=== PATIENT | female | born 1955 | race Caucasian/White ===

== ENCOUNTER → 2016-12-25 | Outpatient (CLI) | payer OTHER ==
--- NOTE | 2016-12-25 08:41 | US ---
EXAMINATION TYPE: US abdomen complete DATE OF EXAM: 12/25/2016 COMPARISON: NONE CLINICAL HISTORY: R10.9 ABD Pain. Epigastric and RUQ pain, nausea and vomiting; ulcerative colitis, c eliac disease EXAM MEASUREMENTS: Liver Length: 13.7 cm Gallbladder Wall: 0.2 cm CBD: 0.4 cm Spleen: 8.5 cm Right Kidney: 10.4 x 6.1 x 5.4 cm Left Kidney: 10.1 x 5.3 x 5.2 cm Pancreas: wnl Liver: multiple hepatic cysts with largest in right lobe = 3.9 x 3.8 x 4.0cm Gallbladder: wnl Evidence for sonographic Greer's sign: No CBD: wnl Spleen: wnl Right Kidney: couple of renal cysts with larger at lateral lower pole = 1.3 x 1.6 x 1.4cm Left Kidney: wnl Upper IVC: wnl Abd Aorta: wnl IMPRESSION: 1. Sonographically simple appearing benign hepatic cysts and right renal cysts. 2. No sonographic evidence of cholelithiasis or cholecystitis.
== END ==
LOC: RADUSWWP 07:32
PROVIDERS: ATTEND Family Medicine
DX: N28.1 Cyst of kidney, acquired (principal); K76.89 Other specified diseases of liver; R10.9 Unspecified abdominal pain
CPT/HCPCS: 76700

== ENCOUNTER 2021-04-07 22:55 | Inpatient (IN) | payer OTHER ==
[2021-04-07] MEDS ORDERED: MORPHINE SULFATE 4 MG/ML SYRINGE IV STA (23:21)
--- NOTE | 2021-04-07 23:30 | ED ---
Neuro HPI - General Chief Complaint: Neuro Symptoms/Deficit Stated Complaint: LT eye drooping, headache Time Seen by Provider: 04/07/21 23:08 Source: patient Mode of arrival: ambulatory Limitations: no limitations - History of Present Illness Is the patient presenting with stroke symptoms?: Yes Last Known Well Date: 04/07/21 Last Known Well Time: 10:00 Last Observed Normal: 10:00 Location: left face History of same: No Place: home Severity: severe Quality: weak, numb Improves With: time Worsens With: none On Anticoagulants: No Context: sudden onset Associated Symptoms: headaches - Related Data Home Medications: Home Medications Medication Instructions Recorded Confirmed Albuterol Inhaler (Mhu) [Ventolin 1 - 2 puff INHALATION Q6HR PRN 01/09/16 01/09/16 Hfa Inhaler] Aspirin 81 mg PO DAILY 01/09/16 01/09/16 Levothyroxine Sodium [Synthroid] 100 mcg PO DAILY 01/09/16 01/09/16 Liothyronine Sodium [Cytomel] 25 mcg PO DAILY 01/09/16 01/09/16 Raloxifene [Evista] 60 mg PO DAILY 01/09/16 01/09/16 Thyroid,Pork [[place] Thyroid] 5 mg PO DAILY 01/09/16 01/09/16 Allergies/Adverse Reactions: Allergies Allergy/AdvReac Type Severity Reaction Status Date / Time No Known Allergies Allergy Verified 01/10/16 10:42 Review of Systems ROS Statement: Those systems with pertinent positive or pertinent negative responses have been documented in the HPI. ROS Other: All systems not noted in ROS Statement are negative. General Exam Limitations: no limitations Stroke MDM - NIH Stroke Scale 1a. Level of Consciousness: (0) alert 1b. LOC Questions: (0) answers correctly 1c. LOC Commands: (0) performs tasks correctly 2. Best Gaze: (1) partial gaze palsy 3. Visual: (0) no visual loss 4. Facial Palsy: (1) minor paralysis 5a. Motor Arm Left: (0) no drift 5b. Motor Arm Right: (0) no drift 6a. Motor Leg Left: (0) no drift 6b. Motor Leg Right: (0) no drift 7. Limb Ataxia: (0) absent 8. Sensory: (0) normal 9. Best Language: (0) no aphasia 10. Dysarthria: (0) normal 11. Extinction/Inattention: (0) no abnormality NIH Score total: 2 - EKG Data -: EKG Interpreted by Me EKG shows normal: sinus rhythm, axis (Normal), intervals (Normal), QRS complexes (Normal) Rate: normal (880 bpm) Interpretation: nonspecific ST-T wave changes Past Medical History Past Medical History: Asthma, Cancer, Fibromyalgia, Thyroid Disorder Additional Past Medical History / Comment(s): hx. skin cancer, Nilesh's, ulcerative colitis, has celiac, chronic fatigue History of Any Multi-Drug Resistant Organisms: None Reported Past Surgical History: Section, Hysterectomy, Orthopedic Surgery, Tonsillectomy Additional Past Surgical History / Comment(s): bilateral big toe joints removed, thyroidectomy, nerve release left groing Past Anesthesia/Blood Transfusion Reactions: Previous Problems w/ Anesthesia, Postoperative Nausea & Vomiting (PONV) Additional Past Anesthesia/Blood Transfusion Reaction / Comment(s): states after thyroid surg. had hives from head to toe & vocal cord nicked from intubation Past Psychological History: Depression Smoking Status: Never smoker Past Alcohol Use History: Occasional Past Drug Use History: None Reported - Past Family History Father Family Medical History: Cancer Course Vital Signs 04/07/21 23:03 Temperature 100.2 F H Pulse Rate 87 Respiratory 18 Rate Blood Pressure 145/91 O2 Sat by Pulse 98 Oximetry Disposition Referrals: Josiah Smith MD [Primary Care Provider] - 1-2 days
[2021-04-07 23:43] LABS: Basophils % (A) 0 %; Eosinophils # (A) 0.3 k/uL (0-0.7); Eosinophils % (A) 4 %; HCT 44.1 % (34.0-46.0); HGB 14.2 gm/dL (11.4-16.0); Lymphocytes # (A) 2.1 k/uL (1.0-4.8); Lymphocytes % (A) 26 %; MCH 30.1 pg (25.0-35.0); MCHC 32.1 g/dL (31.0-37.0); MCV 93.7 fL (80.0-100.0); Mean Platelet Volume 7.5; Monocytes # (A) 0.4 k/uL (0-1.0); Monocytes % (A) 6 %; Neutrophils # (A) 4.9 k/uL (1.3-7.7); Neutrophils % (A) 61 %; Platelet Count 364 k/uL (150-450); RDW 13.3 % (11.5-15.5)
--- NOTE | 2021-04-07 23:48 | CT ---
EXAMINATION TYPE: CT brain wo con for TPA DATE OF EXAM: 04/07/2021 COMPARISON: None HISTORY: AMS CT DLP: mGycm Automated exposure control for dose reduction was used. Ventricles and sulci appear normal. There is no mass effect or midline shift. There is no sign of int racranial hemorrhage. The calvarium is intact. Skull base is intact. There is normal aeration of the mastoid sinuses. IMPRESSION: Negative unenhanced head CT scan
--- NOTE | 2021-04-07 23:49 | XR ---
EXAMINATION TYPE: XR chest 1V portable DATE OF EXAM: 04/07/2021 COMPARISON: NONE HISTORY: Altered mental status TECHNIQUE: Single view FINDINGS: Heart is normal. Lungs are clear of consolidation. There are no hilar masses. Costophrenic angles are clear IMPRESSION: No active cardiopulmonary disease. Normal heart.
--- NOTE | 2021-04-08 | CT ---
EXAMINATION TYPE: CT angio head neck DATE OF EXAM: 04/07/2021 COMPARISON: None HISTORY: AMS CT DLP: 1509.5 mGycm Automated exposure control for dose reduction was used. CONTRAST: Performed with IV Contrast, patient injected with 65 mL of Isovue 370. Images obtained from the aortic arch to the vertex of the brain with IV contrast. There is 3-D post p rocessed images. FINDINGS: There is normal branching pattern of the great vessels on the aortic arch. There is arterial flow in the common internal and external carotid arteries bilaterally. There is wide patency the carotid amanda ry bifurcations. There is arterial flow in both vertebral arteries. There is arterial flow in the ruslan tebral basilar artery system. There is no evidence of carotid or vertebral artery aneurysm or dissect ion. There is arterial flow in the anterior middle and posterior cerebral arteries. There is no mass effec t. There is no evidence of intracranial aneurysm or neovascularity. There is normal enhancement of th e venous sinuses. There is no evidence of any intracranial arterial stenosis. IMPRESSION: Negative CT angiogram of the brain. Negative CT angiogram of the neck.
[2021-04-08 00:06] LABS: INR 0.9 (<1.2); Partial Thromboplastin Time 23.5 sec (22.0-30.0); Prothrombin Time 10.1 sec (9.0-12.0)
[2021-04-08 00:10] LABS: ALT 18 U/L (4-34); AST 22 U/L (14-36); African American GFR (CKD) >90 (>60 ml/min/1.73 sqM); Albumin 3.9 g/dL (3.5-5.0); Alkaline Phosphatase 76 U/L (38-126); Anion Gap 6 mmol/L; Blood Urea Nitrogen 14 mg/dL (7-17); Calcium 8.9 mg/dL (8.4-10.2); Carbon Dioxide 25 mmol/L (22-30); Chloride 104 mmol/L (98-107); Glucose 105 mg/dL (74-99); Non-African American GFR(CKD) >90 (>60 ml/min/1.73 sqM); Potassium 4.2 mmol/L (3.5-5.1); Sodium 135 mmol/L (137-145); Total Bilirubin 0.4 mg/dL (0.2-1.3); Total Protein 6.6 g/dL (6.3-8.2)
[2021-04-08] MEDS ORDERED: METOCLOPRAMIDE 5 MG/ML 2 ML VIAL IVP STA (00:43)
[2021-04-08] MEDS ORDERED: diphenhydrAMINE 50 MG/ML 1 ML VIAL IVP STA ×2 (00:43→11:01)
[2021-04-08 00:58] LABS: Appearance,Urine Clear (Clear); Bilirubin,Urine Negative (Negative); Blood,Urine Negative (Negative); Color,Urine Light Yellow; Glucose,Urine (UA) Negative (Negative); Ketones,Urine Negative (Negative); Leukocyte Esterase,Urine Small (Negative); Mucus,Urine Rare /hpf; Nitrite,Urine Negative (Negative); PH, Urine 5.5 (5.0-8.0); Protein,Urine Negative (Negative); RBC,Urine 2 /hpf (0-5); Squamous Epithelial Cell,Urine <1 /hpf (0-4); Urobilinogen,Urine <2.0 mg/dL (<2.0); WBC,Urine 4 /hpf (0-5)
[2021-04-08] MEDS ORDERED: ASPIRIN 325 MG TAB PO STA (02:45)
[2021-04-08] MEDS ORDERED: SODIUM CHLORIDE 0.9% 1,000 ML IV SCH (02:45)
[2021-04-08] MEDS ORDERED: HYDROmorphone 0.5 MG/0.5 ML SYRINGE IVP STA (03:00)
[2021-04-08] MEDS ORDERED: SUMAtriptan succinate 6 MG/0.5 ML VIAL SQ STA (03:00)
--- NOTE | 2021-04-08 04:42 | P.HPIM ---
History of Present Illness H&P Date: 04/08/21 Chief Complaint: left sided ptosis 65-year-old female with history of recurrent skin cancer Nilesh's thyroiditis status post thyroidectomy He comes in due to left eye ptosis and dilated pupils. Patient woke up this morning having migraine headaches and then progressed into noticing that her left pupil is dilated. She was also having some photophobia and diplopia. She notified her daughter didn't think much of it and then later on this evening she started noticing left ptosis for which she was brought into the hospital for evaluation. She mentions that she checked her blood pressure throughout the day was fine. She reports persistent headache due to which she thought was migraine. Her last migraine attack was about 30-40 years ago. Patient denies any other focal neuro deficits associated with this. Patient reports some chronic cough and chronic fatigue since she acquired Covid back in March 2019. Otherwise denies any hemoptysis or weight loss denies any abdominal pain nausea or vomiting denies any fevers or chills denies any shortness of breath or chest pain. Workup in the ED involved a code stroke she was evaluated by neurology computed tomography scan of the brain and CTA both were unremarkable for any acute pathology Patient was admitted for further neurology evaluation to rule out stroke Review of Systems Pertinent positives as noted in HPI. All other systems were reviewed and are negative Past Medical History Past Medical History: Asthma, Cancer, Fibromyalgia, Thyroid Disorder Additional Past Medical History / Comment(s): hx. skin cancer, Nilesh's, ulcerative colitis, has celiac, chronic fatigue History of Any Multi-Drug Resistant Organisms: None Reported Past Surgical History: Section, Hysterectomy, Orthopedic Surgery, Tonsillectomy Additional Past Surgical History / Comment(s): bilateral big toe joints removed, thyroidectomy, nerve release left groing Past Anesthesia/Blood Transfusion Reactions: Previous Problems w/ Anesthesia, Postoperative Nausea & Vomiting (PONV) Additional Past Anesthesia/Blood Transfusion Reaction / Comment(s): states after thyroid surg. had hives from head to toe & vocal cord nicked from intubation Past Psychological History: Depression Smoking Status: Never smoker Past Alcohol Use History: Occasional Past Drug Use History: None Reported - Past Family History Father Family Medical History: Cancer Medications and Allergies Home Medications Medication Instructions Recorded Confirmed Type Aspirin 81 mg PO HS 01/08/04/07/21 History Levothyroxine Sodium [Synthroid] 100 mcg PO DAILY 10/27/16 01/24/22 History Liothyronine Sodium [Cytomel] 25 mcg PO DAILY 01/09/16 04/07/21 History Raloxifene [Evista] 60 mg PO DAILY 01/09/16 04/07/21 History Thyroid,Pork [[place] Thyroid] 15 mg PO DAILY 01/09/16 04/07/21 History Cetirizine HCl [Zyrtec] 10 mg PO DAILY 04/07/21 04/07/21 History FLUoxetine HCL [PROzac] 20 mg PO DAILY 04/07/21 04/07/21 History busPIRone HCL [Buspar] 7.5 mg PO BID 04/07/21 04/07/21 History Allergies Allergy/AdvReac Type Severity Reaction Status Date / Time No Known Allergies Allergy Verified 04/07/21 23:44 Physical Exam Vitals: Vital Signs Temp Pulse Resp BP Pulse Ox 04/08/21 00:24 83 16 123/84 95 04/07/21 23:03 100.2 F H 87 18 145/91 98 Intake and Output 04/07/21 04/07/21 04/08/21 14:59 22:59 06:59 Other: Weight 90.718 kg Constitutional: No acute distress, conversant, pleasant Eyes: Anicteric sclerae, moist conjunctiva, Pupils unequal , reactive on the right, dilated and fixed on the left , with ptosis on the left ENMT: NC/AT Oropharynx clear, no erythema, or exudates Neck: Supple, no masses, or JVD No carotid bruits No thyromegaly Lungs: Clear to auscultation Clear to percussion Normal respiratory effort, no accessory muscle use Cardiovascular: Heart regular in rate and rhythm, No murmurs, gallops, or rubs No peripheral edema Abdominal: Soft Nontender, no guarding, rebound or rigidity Abdomen moving with respiration Normoactive bowel sounds No hepatomegaly, No splenomegaly No palpable mass No abdominal wall hernia noted Skin: Normal temperature, tone, texture, turgor No induration No subcutaneous nodules No rash, lesions No ulcers Extremities: No digital cyanosis No clubbing Pedal pulses intact and symmetrical Radial pulses intact and symmetrical No calf tenderness Psychiatric: Alert and oriented to person, place and time Appropriate affect fair judgement Neuro Muscles Strength 5/5 in all 4 extremities , however left upper extremity slightly weaker than right Sensation to light touch grossly present throughout Cranial nerves II-XII grossly intact, Except for partial 3rd cranial nerve pasly on the left with partial deficiency (levator palpebrae and pupillomotor) Left extraocular muscles intact Lymphatics: palpable right supraclavicular lymph nodes Results CBC & Chem 7: 04/07/21 23:23 04/07/21 23:23 Labs: Abnormal Lab Results - Last 24 Hours (Table) 04/07/21 04/08/21 Range/Units 23:23 00:30 Sodium 135 L (137-145) mmol/L Glucose 105 H (74-99) mg/dL Ur Specific [place] 1.050 H (1.001-1.035) Ur Leukocyte Esterase Small H (Negative) Urine Mucus Rare H (None) /hpf Assessment and Plan Assessment: partial left 3 rd cranial nerve palsy (sparing extraocular muscles ) left sided isolated unilateral ptosis and mydriasis , suspicious for brain stem (midbrain) infarction ASA Statin neuro checks neurology consult check echocardiogram tele monitor vital signs check MRI brain PT/OT check TSH, A1c, lipid panel follow up electrolytes chronic conditions intermittent asthma h/o hashimotos s/p thyroidectomy skin cancer full code DVT PPX mechanical 2/2 stroke anticipated length of stay < 2 midnights
[2021-04-08] MEDS ORDERED: LEVOTHYROXINE 100 MCG TAB PO SCH (06:30)
[2021-04-08 07:00] LABS: African American GFR (CKD) >90 (>60 ml/min/1.73 sqM); Anion Gap 8 mmol/L; Blood Urea Nitrogen 12 mg/dL (7-17); Calcium 8.7 mg/dL (8.4-10.2); Carbon Dioxide 22 mmol/L (22-30); Chloride 102 mmol/L (98-107); Glucose 110 mg/dL (74-99); Non-African American GFR(CKD) >90 (>60 ml/min/1.73 sqM); Potassium 4.5 mmol/L (3.5-5.1); Sodium 132 mmol/L (137-145)
[2021-04-08 07:47] VITALS: RESP 18
[2021-04-08] MEDS: busPIRone HCl 5 MG TAB PO SCH ×2 (08:22→20:58)
[2021-04-08] MEDS: FAMOTIDINE 20 MG/2 ML VIAL IV SCH ×2 (08:23→20:58)
[2021-04-08] MEDS: FLUoxetine HCL 20 MG CAP PO SCH (08:23)
[2021-04-08] MEDS: ACETAMINOPHEN TAB 325 MG TAB PO PRN ×2 (08:27→14:10)
[2021-04-08] MEDS ORDERED: LIOTHYRONINE SODIUM 5 MCG TAB PO SCH (09:00)
[2021-04-08] MEDS ORDERED: THYROID, PORK 30 MG TAB PO SCH (09:00)
[2021-04-08] MEDS ORDERED: RALOXIFENE 60 MG TAB PO SCH (09:00)
[2021-04-08] MEDS ORDERED: ATORVASTATIN 40 MG TAB PO SCH (09:00)
[2021-04-08] MEDS ORDERED: LORATADINE 10 MG TAB PO SCH (09:00)
--- NOTE | 2021-04-08 10:39 | ECHOF ---
Referral Reason:stroke MEASUREMENTS -------- HEIGHT: 165.1 cm WEIGHT: 90.7 kg BP: 123/84 IVSd: 1.1 cm (0.6 - 1.1) LVIDd: 5.1 cm (3.9 - 5.3) LVPWd: 1.1 cm (0.6 - 1.1) EDV(Teich): 122 ml IVSs: 1.5 cm LVIDs: 3.5 cm LVPWs: 1.4 cm %IVS Thck: 39 % ESV(Teich): 51 ml EF(Teich): 58 % %FS: 31 % SV(Teich): 70 ml LA Diam: 3.5 cm (2.7 - 3.8) RVIDd: 2.6 cm (< 3.3) IVC: 18.09 mm LALs A4C: 4.2 cm LAAs A4C: 14.5 cm LAESV A-L A4C: 42 ml LAESV MOD A4C: 39 ml LALs A2C: 6.1 cm LAAs A2C: 20.4 cm LAESV A-L A2C: 58 ml LAESV MOD A2C: 55 ml LAESV(A-L): 59 ml LAESV Index (A-L): 29.97 ml/m Ao Diam: 3.4 cm (2.0 - 3.7) AV Cusp: 2.0 cm (1.5 - 2.6) EPSS: 0.4 cm MV E Poncho: 0.88 m/s MV DecT: 162 ms MV Dec Daniels: 5.5 m/s MV A Poncho: 0.73 m/s MV E/A Ratio: 1.21 MV PHT: 47 ms AV Vmax: 1.24 m/s AV maxP.16 mmHg TR Vmax: 2.30 m/s TR maxP.20 mmHg RAP: 5.00 mmHg RVSP: 26.20 mmHg MV EF SLOPE: 214.11 mm/s (70 - 150) MV EXCURSION: 19.78 mm (> 18.000) FINDINGS -------- Sinus rhythm. This was a technically good study. The left ventricular size is normal. There is borderline concentric left ventricular hypertrophy. Overall left ventricular systolic function is normal with, an EF between 55 - 60 %. The right ventricle is normal in size. LA is midly dilated 29-33ml/m2. The right atrium is normal in size. Interatrial and interventricular septum intact. The aortic valve is trileaflet, and appears structurally normal. No aortic stenosis or regurgitation. There is trace mitral regurgitation. Mild tricuspid regurgitation present. Right ventricular systolic pressure is normal at < 35 mmHg. The pulmonic valve is normal. The aortic root size is normal. Normal inferior vena cava with normal inspiratory collapse consistent with estimated right atrial pre ssure of 5 mmHg. There is no pericardial effusion. CONCLUSIONS -------- 1. The left ventricular size is normal. 2. There is borderline concentric left ventricular hypertrophy. 3. Overall left ventricular systolic function is normal with, an EF between 55 - 60 %. 4. LA is midly dilated 29-33ml/m2. 5. The aortic valve is trileaflet, and appears structurally normal. No aortic stenosis or regurgitati on. 6. There is trace mitral regurgitation. 7. Mild tricuspid regurgitation present. 8. There is no pericardial effusion. IDENTIFICATION AND RECORDS COMMANDER: Iliana Saab RDCS
[2021-04-08] MEDS ORDERED: KETOROLAC 15 MG/ML 1 ML VIAL IVP STA (11:00)
[2021-04-08] MEDS ORDERED: PROCHLORPERAZINE INJ 10 MG/2 ML VIAL IVP STA (11:01)
--- NOTE | 2021-04-08 11:18 | P.PN ---
<Mikey Jackson - Last Filed: 04/08/21 16:48> Subjective Progress Note Date: 04/08/21 Hospital course: Patient is a 65-year-old with a past medical history of hypothyroidism, skin ca ncer, and fibromyalgia. She presented to the emergency department with a chief complaint of sudden onset headache, anisocoria, and left ptosis. Patient reports that she received her booster vaccination on 04/06/21 (first 2 doses received Moderna and booster dose received RemCare) and the next day she awoke with a severe migraine headache to left side of head. She reports this continued to worsen and she noticed her left pupil was dilated larger than her right. She continue to watch this throughout the day and also had intermittent episodes of lightheadedness/dizziness. Yesterday evening she noticed her left eyelid began to droop and was accompanied by some tingling to the left side of her face and quadrant of her mouth so she came to the emergency department for evaluation. CT brain was reported to be negative for acute intercranial abnormalities. 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 EKG revealed normal sinus rhythm at 80 bpm with no noted T-wave or ST abnormalities. Laboratory findings unremarkable with the exception of mild hyponatremia with sodium of 132. TSH was less than 0.015 and free 3 T4 was 0.95. Patient admitted under our services with consultation to neurology. Physical exam: Patient seen and fully evaluated at the bedside this morning. She reports continued persistent headache to left side of head and continues to have fixed and dilated left pupil with ptosis of left lid. Patient states headache has shown no improvement. Additional pain medications to be given at this time. Patient currently denies having any dizziness, lightheadedness, dysphasia, changes in her difficulties with her speech, numbness of tongue, chest pain, palpitations, shortness of breath, nausea, or experiencing any numbness/tingling/weakness in her extremities. Vital signs reviewed and stable. General: Nontoxic, no distress and appears stated age. Derm: Skin warm and dry, normal coloration for ethnicity. Head: Atraumatic, normocephalic and symmetric. Eyes: EOMs intact, anisocoria with, and left ptosis and mydriasis (left pupil fixed and dilated) Mouth: no lip lesions, mucus membranes moist Cardiovascular: regular rate and rhythm with normal S1S2, no murmur, positive posterior tibial pulses bilaterally, and cap refill < 2 seconds. Lungs: Respirations even, regular, and unlabored on room air. Lungs CTA bilaterally, no rhonchi, no rales, no wheezing, and no accessory muscle usage. Abdominal: soft, nontender to palpation, no guarding, no appreciable organomegaly Ext: ROM intact. No gross muscle atrophy, no edema, no contractures Neuro: Speech clear, face symmetrical, GCS 15 with the exception of anisocoria and left ptosis, patient has no other noted focal neuro deficits Psych: Alert and oriented to person, place, time, and situation. Appropriate and pleasant affect. 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 EKG revealed normal sinus rhythm at 80 bpm with no noted T-wave or ST abnormalities -Neuro checks every 4 hours. -Neurology following, appreciate further recommendations -Ophthalmology consult -MRI brain/MRA to be completed to further evaluate CTA findings of aneurysm. -Symptomatic care and pain management -Aspirin held secondary to growing aneurysm and patient was started on daily atorvastatin. -Echocardiogram showing a normal EF between 55 and 60%. Hypothyroidism -TSH was less than 0.015 and free 3 T4 was 0.95. -Continue daily medication regimen. CODE STATUS: Full Code DVT prophylaxis: SCD Discussed with: Patient and RN Anticipated discharge date: Clinical course to determine Anticipated discharge place: Home A total of 50 minutes was spent on the care of this complex patient more than 50% of the time was spent in counseling and care coordination. Objective - Vital Signs Vital signs: Vital Signs Temp 98.7 F 04/08/21 07:44 Pulse 83 04/08/21 09:52 Resp 18 04/08/21 09:52 BP 138/68 04/08/21 09:52 Pulse Ox 94 L 04/08/21 09:52 Intake & Output 04/07/21 04/08/21 04/08/21 18:59 06:59 18:59 Weight 90.718 kg - Labs CBC & Chem 7: 04/07/21 23:23 04/08/21 06:11 Labs: Abnormal Lab Results - Last 24 Hours (Table) 04/07/21 04/08/21 04/08/21 Range/Units 23:23 00:30 06:11 Sodium 135 L 132 L (137-145) mmol/L Glucose 105 H 110 H (74-99) mg/dL TSH <0.015 L (0.465-4.680) mIU/L Ur Specific [place] 1.050 H (1.001-1.035) Ur Leukocyte Esterase Small H (Negative) Urine Mucus Rare H (None) /hpf <Amanda Rabago - Last Filed: 04/08/21 18:40> Subjective I reviewed the documentation as provided by the KENNEDY above, who is the original author of this note. I agree with the documented assessment and plan, with the following changes: NoneI reviewed the documentation as provided by the KENNEDY above, who is the original author of this note. I agree with the documented assessment and plan, with the following changes: I discussed this plan with Drs. Iqbal and Salazar, given the patient's concerning findings of a growing 9 mm aneurysm in the posterior community getting artery which is impinging on the third cranial nerve, patient will be transferred to [facility] for likely interventional procedure tomorrow morning. Continue patient on aspirin Maintain blood pressure of less than 120 over less than 80. Patient was notified of change in plan, and is amenable to transfer. Dr. FRITZ has accepted the patient for transfer. Objective - Vital Signs Vital signs: Vital Signs Temp 98.0 F 04/08/21 13:51 Pulse 71 04/08/21 16:00 Resp 18 04/08/21 16:00 BP 121/73 04/08/21 16:00 Pulse Ox 98 04/08/21 16:00 Intake & Output 04/07/21 04/08/21 04/08/21 18:59 06:59 18:59 Weight 90.718 kg 90.718 kg - Labs CBC & Chem 7: 04/07/21 23:23 04/08/21 06:11 Labs: Abnormal Lab Results - Last 24 Hours (Table) 04/07/21 04/08/21 04/08/21 Range/Units 23:23 00:30 06:11 Sodium 135 L 132 L (137-145) mmol/L Glucose 105 H 110 H (74-99) mg/dL TSH <0.015 L (0.465-4.680) mIU/L Ur Specific [place] 1.050 H (1.001-1.035) Ur Leukocyte Esterase Small H (Negative) Urine Mucus Rare H (None) /hpf
[2021-04-08 12:52] LABS: T4, Free (Free Thyroxine) 0.95 ng/dL (0.78-2.19)
--- NOTE | 2021-04-08 13:32 | P.CNNES ---
History of Present Illness Consult date: 04/08/21 Requesting physician: Lester Montano Reason for Consult: Left facial weakness History of Present Illness: Patient is a 65-year-old female, otherwise very healthy came to the hospital yesterday at 10:55 PM for new onset headache, anisocoria, and left ptosis. Patient states that she woke up yesterday morning with a severe migraine, pointing to the left orbital temporal region. It continued to get worse. She saw herself in the mirror, and noticed her left pupil was dilated as compared to the right. This dilated pupil continued to be present throughout the day. Patient also felt nauseous with dizziness. Her daughter gave her Dramamine. She went to bed last night and noticed that her left eyelid was completely droopy. Therefore she decided to come to the ER. While in the ER, she started noticing double vision at times. Patient also noticed some tingling of left side of the face but did not have any numbness tingling, focal weakness involving the extremities, problem with balance, dysphagia or dysarthria. Vital signs on arrival blood pressure 145/91, pulse rate 87 temperature 100.2. Patient's blood test shows normal CBC, PT/PTT, sodium 135 potassium 4.2, normal renal and hepatic panel. Troponin negative. TSH is very low <0.015, free T4 pending. UA is negative. Cho virus PCR negative. Hemoglobin A1c 5.9. CT head is normal. I personally reviewed computed tomography scan of the head and agree with the findings. CTA of head and neck reported as negative by Dr. Nichole. EKG with normal sinus rhythm. Chest x-ray showed no acute cardiopulmonary disease. Patient denies diabetes, hypertension, never smoked. She does take aspirin 81 mg daily for years. Patient has been diagnosed with chronic fatigue and fibromyalgia by cylinder steamer, therefore is on multiple medications as below. She denies any tick bites in the past. Patient says that she has history of migraines only with . The last child she has is 31 years of age. She used to have terrible migraines throughout her all 4 pregnancies. Patient's home medications includes Evista, aspirin 81 mg, [place] Thyroid, levothyroxine, levothyroxine, fluoxetine, Zyrtec and BuSpar 7.5 mg twice a day. Review of Systems As mentioned above in detail. All other 14 point review systems reviewed and unremarkable. No chest pain, abdominal pain nausea vomiting diarrhea. No fever or chills. Past Medical History Past Medical History: Asthma, Cancer, Fibromyalgia, Thyroid Disorder Additional Past Medical History / Comment(s): hx. skin cancer, Nilesh's, ulcerative colitis, has celiac, chronic fatigue History of Any Multi-Drug Resistant Organisms: None Reported Past Surgical History: Section, Hysterectomy, Orthopedic Surgery, Tonsillectomy Additional Past Surgical History / Comment(s): bilateral big toe joints removed, thyroidectomy, nerve release left groing Past Anesthesia/Blood Transfusion Reactions: Previous Problems w/ Anesthesia, Postoperative Nausea & Vomiting (PONV) Additional Past Anesthesia/Blood Transfusion Reaction / Comment(s): states after thyroid surg. had hives from head to toe & vocal cord nicked from intubation Past Psychological History: Depression Smoking Status: Never smoker Past Alcohol Use History: Occasional Past Drug Use History: None Reported - Past Family History Father Family Medical History: Cancer Medications and Allergies Home Medications Medication Instructions Recorded Confirmed Type Aspirin 81 mg PO HS 01/09/16 04/07/21 History Levothyroxine Sodium [Synthroid] 100 mcg PO DAILY 01/09/16 04/07/21 History Liothyronine Sodium [Cytomel] 25 mcg PO DAILY 01/09/16 04/07/21 History Raloxifene [Evista] 60 mg PO DAILY 01/09/16 04/07/21 History Thyroid,Pork [[place] Thyroid] 15 mg PO DAILY 01/09/16 04/07/21 History Cetirizine HCl [Zyrtec] 10 mg PO DAILY 04/07/21 04/07/21 History FLUoxetine HCL [PROzac] 20 mg PO DAILY 04/07/21 04/07/21 History busPIRone HCL [Buspar] 7.5 mg PO BID 04/07/21 04/07/21 History Allergies Allergy/AdvReac Type Severity Reaction Status Date / Time No Known Allergies Allergy Verified 04/07/21 23:44 Physical Examination - Vital Signs Vital Signs: Vital Signs Temp Pulse Resp BP Pulse Ox 04/08/21 09:52 83 18 138/68 94 L 04/08/21 08:29 81 18 04/08/21 07:44 98.7 F 80 18 142/86 96 04/08/21 00:24 83 16 123/84 95 04/07/21 23:03 100.2 F H 87 18 145/91 98 Intake and Output 04/07/21 04/08/21 04/08/21 22:59 06:59 14:59 Other: Weight 90.718 kg Patient is a late middle aged female, in no acute distress. Patient is alert awake oriented to time place and person. Speech and language functions are normal. Attention, concentration and fund of knowledge is adequate. On cranial examination, her left pupil is 5 mm, nonreactive. The right pupil is 3 mm and clearly reactive to light. Her visual henry are full on confrontation, with no neglect on double simultaneous stimulation. Her extr aocular muscles are significant for weakness of the left superior rectus and left levator Palpabre superioris muscle. Patient's medial rectus, inferior rectus and lateral rectus muscles are all intact. Face is symmetric, tongue protrudes to the midline. Palatal elevation and sensation normal, hearing and shoulder shrug normal, facial sensation normal. Shoulder shrug normal. On muscle strength testing, there is no pronator drift and the strength is normal in arms and legs distally and proximally. Deep tendon reflexes are symmetric, 2 at the biceps, 2 at brachioradialis, 2 at the knees, 1 at ankles and plantars are withdrawal bilaterally. Sensory to touch is equal with no neglect. Cerebellar function showed no ataxia for [id number], or [id number] testing. No dysdiadochokinesia. Tone and bulk of muscles normal. Gait deferred. On general examination, there is no carotid bruit or murmur, S1-S2 audible. Abdomen is soft nontender. No organomegaly. Bowel sounds present. Chest is clear. Peripheral pulses are present. No edema. 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 It is only involving the left pupil, the superior rectus and levator palpebre superioris muscle. Exact cause remains uncertain. Patient is not diabetic. 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 CTA of head and neck showed no evidence of aneurysm. Rule out CVA. * Iatrogenic hyperthyroidism * Fibromyalgia Plan: * MRI of the brain with and without contrast * MRA of the brain rule out cerebral aneurysm. * ESR, CRP, YELITZA, Lyme titer, lipid panel. * Patient's TSH is severely decreased. IM to address iatrogenic hyperthyroidism. * Hemoglobin A1c 5.9 * Continue aspirin and agree with Lipitor. * Cho virus PCR negative. * Recommend ophthalmology consultation * Further management based upon above test results. * Neurology will follow.
[2021-04-08] MEDS ORDERED: HYDROcodone/APAP 5-325MG 1 EACH TAB PO PRN (14:17)
--- NOTE | 2021-04-08 16:04 | MR ---
EXAMINATION TYPE: MR brain wo/w con DATE OF EXAM: 04/08/2021 COMPARISON: CT 04/07/2021 HISTORY: New onset partial third CN palsy, VILLARREAL,? Aneurysm. Left side facial droop. TECHNIQUE: Multiplanar, multisequence images of the brain and brainstem is performed without and with IV contras t, utilizing 9 mL intravenous Gadavist . FINDINGS: Diffusion weighted images demonstrate no evidence of a recent infarct or other diffusion ab normality. There is no extra-axial fluid collection or significant white matter signal abnormality. The ventricular system and cisternal spaces are normal in size and appearance. The brain volume is age appropriate. Midline structures demonstrate partially empty sella. The craniocervical junction appears within nor mal limits. The dural venous sinuses appear patent. The visualized sinuses are showing some mucosal disease in ethmoid air cells. And the globes are intact. Aneurysm noted at the posterior communicating artery on the left is not well seen, question some clive t enhancement on axial image #12 post contrast images, better seen on sagittal image #69 postcontrast image. IMPRESSION: No acute brain abnormality is evident. Sinus disease. Known aneurysm is left posterior co mmunicating artery, see dictated report from MR angiogram, CT angiogram
--- NOTE | 2021-04-08 16:09 | MR ---
EXAMINATION TYPE: MR angio head wo con DATE OF EXAM: 04/08/2021 COMPARISON: CT angiogram 04/07/2021, MRI brain 04/08/2021 HISTORY: New onset partial third CN palsy, VILLARREAL,? Aneurysm. Left side facial droop. TECHNIQUE: Time of flight images focusing on the [place] were performed without contrast. Th ree-dimensional reconstructions were performed and additional thinner workstation FINDINGS: The saccular aneurysm at the level of the origin of the posterior communicating artery and the left is confirmed and measures approximately 9 mm in AP dimension by 5 mm in transverse dimension by 3 mm a cephalad to caudal dimension. No additional aneurysm is identified with certainty. There is no evident stenosis or embolus. Anterio r and posterior circulation is intact. Vertebral arteries are codominant. 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
[2021-04-08] MEDS ORDERED: DEXAMETHASONE SOD PHOSPHATE 4 MG/ML 1 ML VIAL IVP SCH (18:00)
[2021-04-08] MEDS ORDERED: hydrALAZINE HCL 25 MG TAB PO STA (19:07)
[2021-04-08 20:09] VITALS: BP 128/79; PULSE 87; TEMP 98
[2021-04-08 20:16] LABS: Glucose,Whole Blood 104 mg/dL (75-99)
[2021-04-09] MEDS ORDERED: ASPIRIN 325 MG TAB PO SCH ×2 (09:00)
--- NOTE | 2021-04-09 09:47 | P.DS ---
Providers Date of admission: 04/08/21 02:45 Expected date of discharge: 04/09/21 Attending physician: Clarissa Mcgovern MD Consults: 04/08/21 02:46 Consult Physician Urgent Consulting Provider: Migel Adame Consult Reason/Comments: Left facial weakness Do you want consulting provider notified?: Yes Primary care physician: [facility] Course: Patient is a 65-year-old with a past medical history of hypothyroidism, skin cancer, and fibromyalgia. She presented to the emergency department with a chief complaint of sudden onset headache, anisocoria, and left ptosis. Patient reports that she received her booster vaccination on 04/06/21 (first 2 doses received [employer] and booster dose received Pfizer) and the next day she awoke with a severe migraine headache to left side of head. She reports this continued to worsen and she noticed her left pupil was dilated larger than her right. She continue to watch this throughout the day and also had intermittent episodes of lightheadedness/dizziness. Yesterday evening she noticed her left eyelid began to droop and was accompanied by some tingling to the left side of her face and quadrant of her mouth so she came to the emergency department for evaluation. CT brain was reported to be negative for acute intercranial abnormalities. 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 EKG revealed normal sinus rhythm at 80 bpm with no noted T-wave or ST abnormalities. Laboratory findings unremarkable with the exception of mild hyponatremia with sodium of 132. TSH was less than 0.015 and free 3 T4 was 0.95. Patient admitted under our services with consultation to neurology. 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 The case was discussed together with Drs. Lincoln and Wendi, and patient was transferred to [facility] for plan to stent the aneurysm. Assessment: See same day progress note for physical exam Patient Condition at Discharge: Serious Plan - Discharge Summary Discharge Rx Participant: No New Discharge Prescriptions: No Action Raloxifene [Evista] 60 mg PO DAILY Aspirin 81 mg PO HS Thyroid,Pork [[place] Thyroid] 15 mg PO DAILY Liothyronine Sodium [Cytomel] 25 mcg PO DAILY Levothyroxine Sodium [Synthroid] 100 mcg PO DAILY FLUoxetine HCL [PROzac] 20 mg PO DAILY Cetirizine HCl [Zyrtec] 10 mg PO DAILY busPIRone HCL [Buspar] 7.5 mg PO BID Discharge Medication List Aspirin 81 mg PO HS 01/09/16 [History] Levothyroxine Sodium [Synthroid] 100 mcg PO DAILY 01/09/16 [History] Liothyronine Sodium [Cytomel] 25 mcg PO DAILY 01/09/16 [History] Raloxifene [Evista] 60 mg PO DAILY 01/09/16 [History] Thyroid,Pork [[place] Thyroid] 15 mg PO DAILY 01/09/16 [History] Cetirizine HCl [Zyrtec] 10 mg PO DAILY 04/07/21 [History] FLUoxetine HCL [PROzac] 20 mg PO DAILY 04/07/21 [History] busPIRone HCL [Buspar] 7.5 mg PO BID 04/07/21 [History] Follow up Appointment(s)/Referral(s): Josiah Smith MD [Primary Care Provider] - 1-2 days Discharge Disposition: TRANSFER TO SHORT TERM HOSP
== END 2021-04-08 22:32 | disposition short-term general hospital (02) | DRG 92 ==
LOC: EC 22:55 → 3SCARD 04-08 02:45
PROVIDERS: ADMIT Internal Medicine; ATTEND Internal Medicine
DX: I67.1 Cerebral aneurysm, nonruptured (principal); E87.1 Hypo-osmolality and hyponatremia; K51.90 Ulcerative colitis, unspecified, without complications; H49.00 Third [oculomotor] nerve palsy, unspecified eye; R29.818 Other symptoms and signs involving the nervous system; H02.402 Unspecified ptosis of left eyelid; C44.90 Unspecified malignant neoplasm of skin, unspecified; E05.80 Other thyrotoxicosis without thyrotoxic crisis or storm; Z20.822 Contact with and (suspected) exposure to COVID-19; E89.0 Postprocedural hypothyroidism; F32.A Depression, unspecified; G43.909 Migraine, unspecified, not intractable, without status migrainosus; H57.02 Anisocoria; H57.04 Mydriasis; J45.20 Mild intermittent asthma, uncomplicated; M79.7 Fibromyalgia; R29.810 Facial weakness; Z79.82 Long term (current) use of aspirin; Z79.890 Hormone replacement therapy; Z79.899 Other long term (current) drug therapy; Z85.828 Personal history of other malignant neoplasm of skin; Z90.710 Acquired absence of both cervix and uterus
CPT/HCPCS: 36415; 70450; 70496; 70498; 70544; 70553; 71045; 80048; 80053; 81001; 83036; 84439; 84443; 84484; 85025; 85610; 85730; 87635; 93005; 93306; 96374; 96375; 99285

== ENCOUNTER → 2021-09-25 | Outpatient (CLI) | payer OTHER ==
--- NOTE | 2021-09-26 08:38 | BD ---
EXAMINATION TYPE: Axial Bone Density DATE OF EXAM: 09/25/2021 COMPARISON: NONE CLINICAL HISTORY: 65 years year old Female. ICD-10 CODE: M81.0 OSTEOPOROSIS Height: 64 Weight: 206 FRAX RISK QUESTIONS: Alcohol (3 or more units per day): NO Family History (Parent hip fracture): NO Glucocorticoids (More than 3mos): NO History of Fracture in Adulthood: RT FOOT, HAND Secondary Osteoporosis: 1. Type 1 Diabetes: NO 2. Hyperthyroidism: NO 3. Menopause before 45: NO 4. Malnutrition: NO 5. Chronic liver disease: NO Rheumatoid Arthritis: NO Current Tobacco Use: NO RISK FACTORS HISTORY OF: Hip Fracture (Right/Left): NO Spine Fracture: NO History of Wrist Fracture: NO Surgery to Spine/Hip(right/left)/Wrist (right/left): NO Family History of Osteoporosis: NO Active: NO Diet low in dairy products/other sources of calcium: NO Postmenopausal woman: YES Take estrogen and/or progesterone medications: EVISTA How long: PAST 20 YEARS Lost more than 2 inches in height since high school: NO Frequent falls: NO Poor Health: YES Hyperparathyroidism: NO Adrenal Insufficiency: NO MEDICATIONS: Prednisone or other steroids: NO Thyroid Medications: YES Which medication: SYNTHROID, CYSTOMYL, ARMOUR How Long: SINCE AGE 32 Osteoporosis Medications: NO Additional Medications: BRILINTA, LISINOPRIL, BP MEDS, CHOLESTEROL, VIT D, CALCIUM, FISH OIL Additional History: EXAM MEASUREMENTS: Bone mineral densitometry was performed using the Knotch System. Bone mineral density as measured about the Lumbar spine is: ----- L1-L4(G/cm2): 1.370 T Score Values are as follows: ----- L1: 0.3 ----- L2: 1.5 ----- L3: 2.4 ----- L4: 2.0 ----- L1-L4: 1.6 NO COMPARISON IMAGES ARE AVAILABLE Bone mineral density about the R hip (g/cm2): 1.046 Bone mineral density about the L hip (g/cm2): 1.052 T Score values are as follows: -----R Neck: 0.1 -----L Neck: 0.1 -----R Total: 1.0 -----L Total: 1.2 NO COMPARISON IMAGES ARE AVAILABLE FRAX%s: The graph provided illustrates a 6.0% chance for a major osteoporotic fx and a 0.2% chance fo r the hips probability for fx in 10 years time. IMPRESSION: Normal (Values between +1 and -1 indicate normal bone mass). Consider repeating this study in 5 year s or sooner if there is some new clinical indication. NOTE: T-SCORE=SD OF THE YOUNG ADULT MEAN.
--- NOTE | 2021-09-26 09:34 | MM ---
Reason for Exam: Screening (asymptomatic). Last mammogram was performed 4 year(s) and 8 month(s) ago. Patient History: Menarche at age 14. First Full-Term at age 27. Used Estrogen. Risk Values: Ena 5 year model risk: 1.7%. NCI Lifetime model risk: 7.4%. Prior Study Comparison: 12/05/2015 Bilateral MG screening mammo w CAD - 2, [facility]. 12/10/2015 Right MG diagnostic mammo RT w CAD - 2, [facility]. 01/20/2017 Bilateral MG screening mammo w CAD - 2, [facility]. Tissue Density: The breast tissue is heterogeneously dense. This may lower the sensitivity of mammography. Findings: Analyzed By CAD. There is no suspicious group of microcalcifications or new suspicious mass in either breast. Overall Assessment: Negative, BI-RAD 1 Management: Screening Mammogram of both breasts in 1 year. A clinical breast exam by your physician is recommended on an annual basis and results should be correlated with mammographic findings. Electronically signed and approved by: Cecilio Cardoso DO
== END | disposition home or self-care (01) ==
LOC: RADMAMWWP 15:43
PROVIDERS: ATTEND Internal Medicine Geriatric Medicine
DX: Z12.31 Encounter for screening mammogram for malignant neoplasm of breast (principal)
CPT/HCPCS: 77067; 77080

== ENCOUNTER → 2023-12-01 | Outpatient (CLI) | payer MEDICARE ==
--- NOTE | 2023-12-05 15:22 | MM ---
Reason for Exam: Screening (asymptomatic). Last mammogram was performed 2 year(s) and 2 month(s) ago. Patient History: Menarche at age 14. First Full-Term at age 27. Hysterectomy at age 47. Currently using Estrogen. Risk Values: Ena 5 year model risk: 1.8%. NCI Lifetime model risk: 6.9%. Prior Study Comparison: 12/10/2015 Right MG diagnostic mammo RT w CAD - 2, [facility]. 01/20/2017 Bilateral MG screening mammo w CAD - 2, [facility]. 09/25/2021 Bilateral MG screening mammo w CAD, [facility]. Tissue Density: The breasts are heterogeneously dense, which may obscure small masses. Findings: Analyzed By CAD. The pattern is symmetrical. Some vascular calcifications present upper mid right mediolateral oblique view. Workup is recommended No suspicious groups of microcalcifications, spiculated or lobular masses, architectural distortion or other secondary signs of malignancy are mammographically apparent. Overall Assessment: Incomplete: need additional imaging evaluation, BI-RAD 0 Management: Diagnostic Mammogram of the right breast. A negative mammogram report should not preclude additional follow up of suspicious palpable abnormalities. Patient should continue monthly self breast exam. A clinical breast exam by your physician is recommended on an annual basis and results should be correlated with mammographic findings. Note on Ena scores and lifetime risk: 1. A Ena score greater than 3% is considered moderate risk. If this is the case, consider specialist referral to assess eligibility for a risk reducing agent. 2. If overall lifetime risk for the development of breast cancer is 20% or higher, the patient may qualify for future screening with alternating mammogram and breast MRI. [facility], , 12/05/2023 3:19 PM. Electronically signed and approved by: Bryce Puga D.O. Radiologis
== END | disposition home or self-care (01) ==
LOC: RADMAMWWP 16:40
PROVIDERS: ATTEND Internal Medicine Geriatric Medicine
CPT/HCPCS: 77063; 77067

== ENCOUNTER → 2023-12-09 | Outpatient (CLI) | payer MEDICARE ==
--- NOTE | 2023-12-09 08:57 | MM ---
Reason for Exam: Additional evaluation requested from abnormal screening. Last screening mammogram was performed less than 1 month ago. Patient History: Menarche at age 14. First Full-Term at age 27. Hysterectomy at age 47. Currently using Estrogen. Risk Values: Ena 5 year model risk: 1.9%. NCI Lifetime model risk: 6.7%. Tissue Density: Right: The breasts are heterogeneously dense, which may obscure small masses. Findings: Analyzed By CAD. Compression views appear unremarkable. Mediolateral view is unremarkable. A suspicious group of punctate calcifications identified. A few scattered punctate calcifications present. Precautionary 6 month follow-up is recommended. Overall Assessment: Probably benign, BI-RAD 3 Management: Diagnostic Mammogram of the right breast in 6 months. A negative mammogram report should not preclude additional follow up of suspicious palpable abnormalities. Patient should continue monthly self breast exam. A clinical breast exam by your physician is recommended on an annual basis and results should be correlated with mammographic findings. Note on Ena scores and lifetime risk: 1. A Ena score greater than 3% is considered moderate risk. If this is the case, consider specialist referral to assess eligibility for a risk reducing agent. 2. If overall lifetime risk for the development of breast cancer is 20% or higher, the patient may qualify for future screening with alternating mammogram and breast MRI. [facility], , 12/09/2023 8:53 AM. Electronically signed and approved by: Bryce Puga D.O. Radiologis
== END | disposition home or self-care (01) ==
LOC: RADMAMWWP 08:22
PROVIDERS: ATTEND Internal Medicine Geriatric Medicine
DX: R92.8 Other abnormal and inconclusive findings on diagnostic imaging of breast
CPT/HCPCS: 77061; 77065